=== PATIENT | male | born 1970 | race Caucasian/White ===

== ENCOUNTER 2016-11-23 10:27 | Emergency (ER) | payer OTHER ==
[~2016-11-23] VITALS: Ht 172.7 cm; Wt 121.9 kg
[2016-11-23 10:31] VITALS: BP 175/91; PULSE 112; RESP 18; O2SAT 96
--- NOTE | 2016-11-23 11:11 | ED.REPORT ---
HPI-Stroke / CVA Nov 23, 2016 ED Provider: Tushar Tomas MD Patient is a 46-year-old gentleman with history of hyperlipidemia, diabetes type II insulin-dependent reportedly uncontrolled, unremarkable family history for multiple heart attacks and strokes, presents to the [facility] emergency department with complaint of unilateral facial numbness and weakness during symptoms presented yesterday morning when he woke up. They have not worsened, they have not resolved. He states the left side of his face feels numb compared to the right, and that he has been having trouble closing his eyes , chewing, and getting through daily tasks as easily as before. He states he has never had this before, he is not on any blood thinners, in the previous 3 days he states he has had bilateral facial fullness, and bilateral headaches behind his eyes, he also reports that he has had tears coming out of his tear ducts particularly when he bends forward which he attributes to the sinus pressure. He has had no recent viral illness that he can recall, most recent was 2 months ago. He denies any lightheadedness, dizziness, chest pain, shortness of breath out of the ordinary, no weakness or numbness in his arms and sputum legs, no nausea vomiting diarrhea, no rashes, no urinary frequency or dysuria. Nursing Notes Stated Complaint: SLURRED SPEECH/NUMBNESS IN FACE Chief Complaint: Neuro Symptoms/ Deficits Nursing Notes Reviewed: Yes Allergies: Coded Allergies: No Known Allergies (Unverified Allergy, Unknown, 05/01/14) Scheduled Acyclovir (Acyclovir) 400 Mg Tablet 400 MG PO 5XD Prednisone (PredniSONE) 20 Mg Tablet 20 MG PO DAILY Take 3 pills by mouth for 3 days then Take 2 pills by mouth for 3 days then Take 1 pill by mouth for 3 days then Take half a pill by mouth for 2 days General Time Seen by Provider: 10:37 Chief Complaint Weakness, Numbness, Slurred speech Face right Hx Obtained From: Patient Time last known well Before bed 3 nights ago Sudden in Onset?: Yes Progression Since Onset: Unchanged Location: : Face Similar Sx Previous: No Risk Factors )( CVA Risk Stratification Smoking Past Medical History Past Medical History Morbid obesity Hypertension Chronic tachycardia Diabetes type II insulin using diagnosed at 18 years old Hyperlipidemia Past Surgical History Right knee surgery Family History Multiple family members with diabetes, heart attacks and strokes unable to give itemized list of relatives and the diseases Smoking History Current Every Day Smoker (less than half a pack a day) Social History Alcohol Use: "Social" Drug Use: Denies drug use Ambulatory Status Independent Review of Systems Complete sys rev & neg: except as marked. Physical Exam General: During up in bed, no apparent distress HEENT: Obvious right facial droop, flat right forehead, tearing to right eye with tears coming down right side of face. There is decreased sensation to pinprick on right side, tongue protrusion is midline, uvula is midline. Extraocular muscles intact, pupillary reflex intact, Cardiovascular: Tachycardic, regular rhythm, no clicks murmurs rubs, peripheral pulses 2/4 equal bilaterally Pulmonary: Breath sounds were distant, no W/R/R. Abdominal: Morbidly obese, Soft to palpation Negative rebound. Extremities: No edema appreciated. No tenderness, asymmetry. Neuro: Neurologically grossly intact, strength is equal bilaterally upper and lower extremities. There is no extremity drift, numbness or paresthesia to the extremities MSK: Gait is normal, able to move extremities on their own volition, strength 5 out of 5 equal bilaterally to upper and lower extremities. Initial Vital Signs Vital Signs (First) Date Time Temp Pulse Resp B/P Pulse Ox O2 Delivery O2 Flow Rate FiO2 11/23/16 10:31 36.4 112 18 175/91 96 Initial VS: Reviewed, Vital signs abnormal (hypertensive, tachycardic) Re-Eval/Medical Decision Med Decision/Clinical Course Based on history, physical exam findings, it is felt that patient is experiencing a Lindsay's palsy. Findings were discussed with the patient as well as the treatment and need for follow-up. Return precautions and retroflex symptoms were discussed with the patient, to which he stated understanding and agreement. He was given prednisone taper and acyclovir prescriptions and was verbally instructed on how to use these by the resident physician. Patient was able to ambulate from the department on his own accord. Patient Discharge & Departure Impression: Primary Impression: Lindsay's palsy Disposition: Home Discharge Condition All VS Reviewed: Yes Condition: Stable Patient Instructions: Lindsay's Palsy (ED) Additional Instructions: Thank you for entrusting us with your care. It is felt that your symptoms are due to a temporary paralysis of your seventh cranial nerve. This is the nerve to the face that controls the motor function. Please see the accompanying handout for detailed explanation. We expect this to be transient, meaning that it should go away over time, typically 3-4 weeks. In the meantime, please watch for worsening symptoms, or if there becomes involvement of either of your arms or legs, or both. If this occurs please call 911 immediately. Please follow-up with your primary care doctor regarding her chronic medical conditions, and for ongoing evaluation and follow-through for resolution of the symptoms. Referrals: Zarina Graham (PCP) Attending Statement The patient was seen and examined together with Dr. Lezama on 11/23/16 and I agree with the history, exam and plan as outlined in the note above. copies to: Zarina Graham Noah M DO Nov 23, 2016 11:11 Tushar Tomas MD Nov 23, 2016 14:02
[2016-11-23] MEDS ORDERED: PRE20 PO (12:02)
[2016-11-23] MEDS ORDERED: ACYC400T2 PO (12:06)
[2016-11-23 12:23] VITALS: BP 176/92; PULSE 108; RESP 18; O2SAT 96
== END 2016-11-23 12:08 | disposition home or self-care (01) ==
LOC: SED 10:27
DX: G51.0 Bell's palsy (principal); I10 Essential (primary) hypertension; E11.9 Type 2 diabetes mellitus without complications; E78.5 Hyperlipidemia, unspecified; F17.200 Nicotine dependence, unspecified, uncomplicated; Z79.4 Long term (current) use of insulin